=== PATIENT | male | born 1945 | race Caucasian/White ===

== ENCOUNTER 2018-04-17 14:45 | Emergency (ER) | payer OTHER ==
[~2018-04-17] VITALS: Ht 170.2 cm; Wt 122.5 kg
[~2018-04-17 14:45] MED LIST: BACTROBAN OINT22 GM TP; HIBICLENS118 ML TP; HYZAAR 100-251 EACH; NO TOMA MED.; SEPTRA DS TABLE1 TAB PO
[2018-04-17] MEDS ORDERED: CLARITIN10 M1 PO (15:38)
[2018-04-17] MEDS ORDERED: COZAAR100 MG PO (15:38)
== END 2018-04-17 15:56 | disposition home or self-care (01) ==
LOC: ER 14:45
DX: H10.13 Acute atopic conjunctivitis, bilateral (principal)

== ENCOUNTER 2019-02-21 01:47 | Emergency (ER) | payer OTHER ==
[~2019-02-21] VITALS: Ht 172.7 cm; Wt 95.3 kg
[~2019-02-21 01:47] MED LIST changes: +CLARITIN10 M1 PO; +COZAAR100 MG PO
== END 2019-02-21 11:14 | disposition left against medical advice (07) ==
LOC: ER 01:47 → CPU-OBS 02:05 → ER 11:14
DX: I48.2 Chronic atrial fibrillation (principal); I16.0 Hypertensive urgency; I10 Essential (primary) hypertension

== ENCOUNTER 2019-09-24 17:59 | Emergency (ER) | payer OTHER ==
[~2019-09-24] VITALS: Ht 170.2 cm; Wt 93.9 kg
[2019-09-24] MEDS ORDERED: TOPROL XL50 M1 PO (18:27)
[2019-09-24] MEDS ORDERED: ELIQUIS5 MG PO (18:27)
[2019-09-24] MEDS ORDERED: AMIODARONE HCL200 MG PO (18:28)
[2019-09-24] MEDS ORDERED: ATACAND HCT 321 EAC1 PO (18:28)
== END 2019-09-24 21:25 | disposition home or self-care (01) ==
LOC: ER 17:59
DX: I48.0 Paroxysmal atrial fibrillation (principal); R00.2 Palpitations

== ENCOUNTER 2021-02-26 08:00 | Outpatient (CLI) | payer OTHER ==
[~2021-02-26 08:00] MED LIST changes: +AMIODARONE HCL200 MG PO; +ATACAND HCT 321 EAC1 PO; +ELIQUIS5 MG PO; +TOPROL XL50 M1 PO
== END 2021-02-26 08:15 | disposition home or self-care (01) ==
LOC: PPH VACUNA 08:00
PROVIDERS: ATTEND Emergency Medicine Pediatric Emergency Medicine
DX: Z23 Encounter for immunization (principal)

== ENCOUNTER 2022-05-17 19:06 | Emergency (ER) | payer OTHER ==
[~2022-05-17] VITALS: Ht 172.7 cm; Wt 89.8 kg
== END 2022-05-17 23:57 | disposition home or self-care (01) ==
LOC: ER 19:06
DX: U07.1 COVID-19 (principal)

== ENCOUNTER 2022-07-20 04:01 | Emergency (ER) | payer OTHER ==
[~2022-07-20] VITALS: Ht 170.2 cm; Wt 88.5 kg
[2022-07-20] MEDS ORDERED: ATACAND HCT 321 EAC1 PO (10:25)
== END 2022-07-20 10:34 ==
LOC: ER 04:01
DX: I10 Essential (primary) hypertension (principal)

== ENCOUNTER 2023-01-27 07:45 | Outpatient (CLI) | payer OTHER | END 2023-01-27 07:48 | disposition home or self-care (01) | LOC: TOM 07:45 | PROVIDERS: ATTEND Internal Medicine | DX: I48.11 Longstanding persistent atrial fibrillation (principal); I71.21 Aneurysm of the ascending aorta, without rupture; I11.9 Hypertensive heart disease without heart failure; I35.1 Nonrheumatic aortic (valve) insufficiency | CPT/HCPCS: 71260; Q9965 ==

== ENCOUNTER → 2024-03-25 | Emergency (ER) | payer OTHER ==
[~2024-03-25] VITALS: Ht 170.2 cm; Wt 83.9 kg
[~2024-03-25] MED LIST changes: +KETOROLAC TROMETHAMINE 30 MG VIAL IM STA; +ORPHENADRINE CITRATE 30 MG/ML AMPUL IM STA
== END | disposition home or self-care (01) ==
LOC: ER 07:29
DX: M54.30 Sciatica, unspecified side (principal)
CPT/HCPCS: 96372; 99282; J1885; J2360

== ENCOUNTER 2024-04-04 14:29 | Outpatient (CLI) | payer OTHER ==
[~2024-04-04 14:29] MED LIST changes: -KETOROLAC TROMETHAMINE 30 MG VIAL IM STA; -ORPHENADRINE CITRATE 30 MG/ML AMPUL IM STA
== END 2024-04-04 14:31 | disposition home or self-care (01) ==
LOC: RAD 14:29
PROVIDERS: ATTEND Internal Medicine
DX: M54.50 Low back pain, unspecified (principal)

== ENCOUNTER → 2024-06-14 07:28 | Outpatient (CLI) | payer OTHER | END | disposition home or self-care (01) | LOC: NUCLEAR 07:00 | PROVIDERS: ATTEND Internal Medicine | DX: I20.9 Angina pectoris, unspecified (principal) | CPT/HCPCS: 78452; 93017; A9500 ==

== ENCOUNTER 2024-11-15 07:56 | Emergency (ER) | payer OTHER ==
[~2024-11-15] VITALS: Ht 170.2 cm; Wt 80.7 kg
== END 2024-11-15 11:23 | disposition home or self-care (01) ==
LOC: ER 07:56
DX: R07.89 Other chest pain (principal); W10.0XXA Fall (on)(from) escalator, initial encounter; Y93.89 Activity, other specified; Y92.89 Other specified places as the place of occurrence of the external cause